=== PATIENT | male | born 1935 | race Native Hawaiian/Other Pacific Islander ===

== ENCOUNTER 2020-02-13 05:48 | Emergency (ER) | payer OTHER ==
[~2020-02-13] VITALS: Ht 177.8 cm; Wt 132.5 kg
[2020-02-13 07:26] VITALS: BP 148/50; TEMP 98.2
== END 2020-02-13 07:28 | disposition home or self-care (01) ==
LOC: EDBD 05:48 → ED 05:48
PROC: 0T9B70Z Drainage of Bladder with Drainage Device, Via Natural or Artificial Opening (ICD-10-PCS; principal; 2020-02-13)
DX: N40.1 Benign prostatic hyperplasia with lower urinary tract symptoms (principal); R33.8 Other retention of urine
CPT/HCPCS: 51702; 81000; 87088; 99283

== ENCOUNTER 2020-02-21 22:21 | Emergency (ER) | payer OTHER ==
[~2020-02-21] VITALS: Ht 177.8 cm; Wt 132.5 kg
[2020-02-21 23:45] VITALS: BP 120/59; TEMP 97.8
== END 2020-02-21 23:48 | disposition home or self-care (01) ==
LOC: ED 22:21
PROC: 0T2BX0Z Change Drainage Device in Bladder, External Approach (ICD-10-PCS; principal; 2020-02-21)
DX: R33.8 Other retention of urine (principal); N40.1 Benign prostatic hyperplasia with lower urinary tract symptoms; N32.0 Bladder-neck obstruction
CPT/HCPCS: 51702; 81000; 99283

== ENCOUNTER 2020-07-17 09:28 | Outpatient (CLI) | payer OTHER ==
[2020-07-17 09:51] LABS: PLATELET COUNT 317 K/uL (142-355)
[2020-07-17 10:00] LABS: POTASSIUM 4.4 mmol/L (3.6-5.2)
== END 2020-07-17 22:40 | disposition home or self-care (01) ==
LOC: LABW 09:28
PROVIDERS: ATTEND Nurse Practitioner Family
DX: N02.9 Recurrent and persistent hematuria with unspecified morphologic changes (principal); N32.89 Other specified disorders of bladder
CPT/HCPCS: 36415; 80053; 85027

== ENCOUNTER 2020-10-05 19:27 | Inpatient (IN) | payer OTHER ==
[~2020-10-05] VITALS: Ht 177.8 cm; Wt 134.7 kg
[2020-10-18 13:37] LABS: SODIUM 132 mmol/L (136-145)
[2020-10-18 13:38] LABS: PARTIAL THROMBOPLASTIN TIME 27.3 SECONDS (24.5-33.6)
[2020-10-18 13:41] LABS: PLATELET COUNT 350 K/uL (142-355)
[2020-10-18 13:47] LABS: POTASSIUM 4.4 mmol/L (3.6-5.2)
[2020-10-18 13:50] LABS: PLATELET COUNT 339 K/uL (142-355)
[2020-10-20 05:48] LABS: PLATELET COUNT 289 K/uL (142-355)
[2020-10-20 08:11] LABS: POTASSIUM 3.6 mmol/L (3.6-5.2)
[2020-10-20 08:12] LABS: POTASSIUM 4.1 mmol/L (3.6-5.2)
[2020-10-20 08:13] LABS: PLATELET COUNT 322 K/uL (142-355)
[2020-10-20 09:50] LABS: PARTIAL THROMBOPLASTIN TIME 25.4 SECONDS (24.5-33.6)
[2020-10-20 09:51] LABS: PLATELET COUNT 282 K/uL (142-355)
== END 2020-10-10 02:20 | disposition short-term general hospital (02) | DRG 682 ==
LOC: ED 19:27 → MED/SURG 23:00 → ICU 10-09 16:40 → MED/SURG 10-10 02:20 → ICU 10-10 02:20
PROVIDERS: ADMIT Family Medicine; ATTEND Family Medicine
DX: N17.8 Other acute kidney failure (principal); I26.99 Other pulmonary embolism without acute cor pulmonale; I13.0 Hypertensive heart and chronic kidney disease with heart failure and stage 1 through stage 4 chronic kidney disease, or unspecified chronic kidney disease; N20.9 Urinary calculus, unspecified; N32.89 Other specified disorders of bladder; R94.4 Abnormal results of kidney function studies; E86.0 Dehydration; E88.81 Metabolic syndrome and other insulin resistance; N40.0 Benign prostatic hyperplasia without lower urinary tract symptoms; E66.01 Morbid (severe) obesity due to excess calories; C67.9 Malignant neoplasm of bladder, unspecified; J44.9 Chronic obstructive pulmonary disease, unspecified; E11.22 Type 2 diabetes mellitus with diabetic chronic kidney disease; N18.9 Chronic kidney disease, unspecified; I50.89 Other heart failure; Z98.890 Other specified postprocedural states
CPT/HCPCS: 36415; 36600; 80048; 80053; 81000; 82271; 82550; 82805; 83735; 83880; 83986; 84100; 84484; 85027; 85379; 85610; 85730; 87635; 93005; 94760; 96360; 96361; 96375; 96376; 99284; J3475; J3480; Q9963; U0003

== ENCOUNTER 2020-10-18 19:50 | Emergency (ER) | payer OTHER ==
[~2020-10-18] VITALS: Ht 177.8 cm; Wt 132.5 kg
[2020-10-18 23:16] VITALS: BP 106/64; TEMP 98.7
== END 2020-10-18 23:16 | disposition home or self-care (01) ==
LOC: ED 19:50
PROC: 0T9B70Z Drainage of Bladder with Drainage Device, Via Natural or Artificial Opening (ICD-10-PCS; principal; 2020-10-18)
DX: N13.8 Other obstructive and reflux uropathy (principal); C67.9 Malignant neoplasm of bladder, unspecified
CPT/HCPCS: 51702; 99282

== ENCOUNTER 2020-10-21 06:31 | Emergency (ER) | payer OTHER ==
[~2020-10-21] VITALS: Ht 177.8 cm; Wt 132.4 kg
[2020-10-21 06:50] VITALS: BP 114/41; TEMP 98.3
== END 2020-10-21 08:28 | disposition home or self-care (01) ==
LOC: ED 06:31
PROC: 0TWB70Z Revision of Drainage Device in Bladder, Via Natural or Artificial Opening (ICD-10-PCS; principal; 2020-10-21)
DX: T83.091A Other mechanical complication of indwelling urethral catheter, initial encounter (principal); Y84.6 Urinary catheterization as the cause of abnormal reaction of the patient, or of later complication, without mention of misadventure at the time of the procedure; Y92.89 Other specified places as the place of occurrence of the external cause
CPT/HCPCS: 81000; 87077; 87086; 87088; 87185; 87186; 96372; 99283; J0696; J1885

== ENCOUNTER 2021-02-05 11:47 | Observation (INO) | payer OTHER ==
[~2021-02-05] VITALS: Ht 177.8 cm; Wt 138.9 kg
--- NOTE | 2021-02-05 12:15 | NUR ---
REC'D PT VIA WC. PT'S SON WITH PT AT TIME OF ARRIVAL TO [facility]. PT AWAKE AND ALERT ON ADMISSION. PT DENIES ANY CHEST PAIN OR DISCOMFORT AT THIS TIME . PT DENIES ANY SHORTNES OF BREATHE ON ADMISSION. PT'S VS TAKEN WILL CONT TO MONITOR.
--- NOTE | 2021-02-05 12:30 | NUR ---
TEL APPLIED PER MD ORDERS. PT'S HR NOTED TO BE 140 IRREG RYTHM. RESP NOTIFIED TO OBTAIN EKG PER MD ORDERS. 1300 FIRST DOSE DIGOXIN 0.25MG IVP GIVEN PER MD ORDES. HR NOTED TO BE 128-134 ON TEL AND IRREG PRIOR TO GIVING DIG IV. WILL CONT TO MONITOR. 1330 PT'S HR NOTED TO RESPOND TO DIG IV PT'S HR NOTED TO BE 110-118 AFTER DIG IV WILL CONT TO MONITOR.
[2021-02-05 12:48] VITALS: BP 127/62; TEMP 97.6; Ht 177.8 cm; Wt 138.9 kg
--- NOTE | 2021-02-05 13:15 | NUR ---
INFORMED DR CROFT THAT IVF'S WERE ORDERED ON ADMISSION BUT PT HAD 2+ PITTING EDEMA TO LOWER EXT NOTED ALONG WITH "ABD DISTENTION " PER PT AND PT'S SON. NEW ORDERS REC'D TO DC IVF'S AT THIS TIME AND CALL MD WITH LAB RESULTS.
[2021-02-05] MEDS ORDERED: LOTREL1 CA4 PO (14:00)
[2021-02-05] MEDS ORDERED: FENOFIBRATE50 MG PO (14:02)
[2021-02-05] MEDS ORDERED: FURO40TA93 PO (14:02)
[2021-02-05] MEDS ORDERED: ELIQUIS5 MG PO (14:03)
[2021-02-05] MEDS ORDERED: TAMS0.4C PO (14:03)
[2021-02-05] MEDS ORDERED: LIPITOR40 MG PO (14:04)
[2021-02-05] MEDS ORDERED: INSUINJP SC (14:05)
[2021-02-05 14:17] LABS: PLATELET COUNT 332 K/uL (142-355)
[2021-02-05 14:28] LABS: PARTIAL THROMBOPLASTIN TIME 31.4 SECONDS (24.5-33.6)
[2021-02-05 14:33] LABS: POTASSIUM 4.3 mmol/L (3.6-5.2)
[2021-02-05 16:00] VITALS: BP 106/57; TEMP 97.7
--- NOTE | 2021-02-05 16:30 | NUR ---
DR CROFT INFOMRED PT'S HR BACK UP TO 130 AT THIS TIME ON TEL. HR NOTED TO BE 124-131. AWAITING FURTHER ORDES 7178 NEW ORDERS REC'D TO REPEAT DIG 0.25 IV AT THIS TIME INFORMED LIDIA HOBBS OF NEW ORDERS. HR PRIOR TO DIG IV 132
[2021-02-05 20:00] VITALS: BP 108/46; TEMP 98.4
[2021-02-05 23:44] VITALS: BP 101/54; TEMP 98.3
[2021-02-06 04:00] VITALS: BP 103/62; TEMP 98.2
[2021-02-06 08:00] VITALS: BP 105/67; TEMP 97.9
[2021-02-06 08:13] LABS: PLATELET COUNT 292 K/uL (142-355)
[2021-02-06 08:33] LABS: POTASSIUM 4.4 mmol/L (3.6-5.2)
--- NOTE | 2021-02-06 11:40 | NUR ---
PT ALERT AND ORIENTED. LAYING SUPINE ON BED. LOWER EXTREMITIES EDEMA NOTED WITH PITTING EDEMA +2. PT STATED THAT HE HAS NOT HAD A BM SINCE WEDNESDAY, 02/04 AT HOME WHEN HAD TAKEN MILK OF MAG. PO. SPOKE WITH SON, ANSLEY TO GIVE UPDATE ON PTS STATUS. SON STATED THAT PT HAD SMALL BM ON 02/05/21 PRIOR TO ADMISSION. CONTINUES TO DISPLAY A-FIB ON TLEMETRY. ZO=[phone]. PT DENIES ANY PAIN/DISCOMFORT.
[2021-02-06 12:00] VITALS: BP 116/65; TEMP 97.6
--- NOTE | 2021-02-06 15:20 | NUR ---
PT C/O "GAS", CONSULTED WITH PCP(LANG) AND OBTAINED AN ORDER FOR SIMETHICONE AND ADMINISTERED TO PT. PTS ABD DISTENDED MORE AT CURRENT TIME THAN AT THE BEGINING OF SHIFT. PT HAS NOT HAD A BM TODAY. PCP ORDERED CT OF ABD AND PELVIS WITH CONSTRAST. PT ED ON BEING NPO UNTIL AFTER CT IS COMPLETED. PT VERBALIZED UNDERSTANDING. DENIES ANY PAIN/DISCOMFORT.
[2021-02-06 16:00] VITALS: BP 118/72; TEMP 97.4
--- NOTE | 2021-02-06 17:53 | NUR ---
PT HIGH FOWLERS IN BED. ALERT AND ORIENTED X4. DENIES ANY PAIN/[id number]. PT DRUNK THE FIRST BOTTLE OF CONTRAST TO PREP FOR CT SCAN. AND DAUGHTER AT BEDSIDE. PCP(LANG) ASSESSED PT AT BEDSIDE. ORDER FOR DIGOXIN 0.25 IV ADMINISTERED ORDERED AND PT TOLERATED WELL, HV=[id number]. PTS IV SITE TO RIGHT HAND INTACT WITH NO SWELLING OR REDNESS NOTED AND FLUSHES WITH NO DIFFICULTY. PER PCP PT IS TO REMAIN HEP LOCK WITH NO CONTINUOUS IVF. NO CHANGE IN EDEMA TO LOWER EXTREMITIES. PT HAS NOT HAD A BM THIS SHIFT. ABD DISTENDED AND SOFT. CONTINUE TO MONITOR.
[2021-02-06 20:00] VITALS: BP 135/63; TEMP 97.7
[2021-02-07] VITALS: BP 105/63; TEMP 98.1
[2021-02-07 04:00] VITALS: BP 103/61; TEMP 97.3
[2021-02-07 04:43] LABS: PLATELET COUNT 290 K/uL (142-355)
[2021-02-07 05:01] LABS: POTASSIUM 4.2 mmol/L (3.6-5.2)
[2021-02-07 08:00] VITALS: BP 91/50; TEMP 97.7
--- NOTE | 2021-02-07 08:17 | NUR ---
PT IS ALERT AND ORIENTED SITTING IN HIGH FOWLERS IN THE BED WATCHING TV. NO DISTRESS IS NOTED. PT TOOK MEDICATIONS WITHOUT ANY DIFFICULTY. PT STATES THAT HE SLEPT LIKE A BABY LAST NIGHT AFTER TAKING THE RESTORIL. PT STATED THAT HE HAS NOT SLEPT THAT WELL IN OVER A MONTH. PT'S HEART SOUNDS ARE IRREGULAR, PULSES ARE PALPATED IN ALL FOUR EXTREMITIES BUT ARE WEAK IN THE PEDAL PULSES. +2 PITTING EDEMA IN BILATERAL LOWER EXTREMITIES. LUNG SOUNDS ARE SLIGHTLY DIMINISHED WITH NO COUGH PRESENT. ABDOMEN IS DISTENDED AND FIRM WITH GASTRIC SOUNDS PRESENT. LAST BM WAS 02/05/21. PT DENIES ANY PAIN OR NEEDS AT THIS TIME. PT WAS LEFT IN HIGH FOWLERS WITH CALL LIGHT WITHIN REACH.
--- NOTE | 2021-02-07 08:26 | NUR ---
MORNING LABS AND SCAN RESULTS HAVE BEEN GIVEN TO PHYSICIAN. PHYSICIAN ORDERED A 500 ML BOLUS OF NORMAL SALINE WITH A REPEAT BMP IN 4 HOURS AFTER BOLUS.
[2021-02-07 12:00] VITALS: BP 123/70; TEMP 98.7
--- NOTE | 2021-02-07 13:33 | NUR ---
PT WAS ASSISTED TO THE BATHROOM FOR A BM. PT WALKED TO THE BATHROOM AND MAINTAINED A STEADY GAIT. PT WAS INSTRUCTED TO PULL THE CORD IN THE BATHROOM IF HE NEEDED ANY ASSISTANCE. NAD WAS NOTED DURING TRANSFER TO THE BATHROOM.
--- NOTE | 2021-02-07 13:40 | NUR ---
PT PASSED A SMALL FORMED BOWEL MOVEMENT.
--- NOTE | 2021-02-07 15:55 | NUR ---
PT WAS GIVEN DISCHARGE INSTRUCTIONS AND EDUCATION PT VERBALIZED UNDERSTANDING OF DISCHARGE INSTRUCTIONS. PT'S SON WAS IN THE ROOM ALSO, ALL NEW PRESCRIPTIONS WERE EXPLAINED IN DETAIL TO THE PT AND HIS SON BOTH VERBALIZED UNDERSTANDING. PT WAS GIVEN WRITTEN INSTRUCTIONS, EDUCATION, PRESCRIPTIONS, AND FOLLOWUP APPT TO [facility] AND REVIEW AT A LATER TIME. IV WAS REMOVED WITHOUT DIFFICULTY WITH CATHETER STILL INTACT. PT WAS TRANSPORTED TO THE SON'S PERSONAL VEHICLE VIA WHEELCHAIR, NAD WAS NOTED ON DISCHARGE.
== END 2021-02-07 15:55 | disposition home or self-care (01) ==
LOC: MED/SURG 11:47
PROVIDERS: ADMIT Family Medicine; ATTEND Family Medicine
DX: I48.91 Unspecified atrial fibrillation (principal); R07.89 Other chest pain; E11.42 Type 2 diabetes mellitus with diabetic polyneuropathy; E11.43 Type 2 diabetes mellitus with diabetic autonomic (poly)neuropathy; K31.84 Gastroparesis; R14.3 Flatulence; E88.09 Other disorders of plasma-protein metabolism, not elsewhere classified; D64.89 Other specified anemias; G47.09 Other insomnia; C67.9 Malignant neoplasm of bladder, unspecified
CPT/HCPCS: 36415; 80053; 80162; 82550; 83735; 83880; 84100; 84443; 84484; 85027; 85379; 85610; 85730; 87635; 93005; 94760; 99220; G0378; G0379; J1160; J1815; Q9963; U0003

== ENCOUNTER 2021-02-09 12:46 | Emergency (ER) | payer OTHER ==
[~2021-02-09] VITALS: Ht 177.8 cm; Wt 132.5 kg
[~2021-02-09 12:46] MED LIST: ELIQUIS5 MG PO; FENOFIBRATE50 MG PO; FURO40TA93 PO; INSUINJP SC; LIPITOR40 MG PO; LOTREL1 CA4 PO; TAMS0.4C PO
[2021-02-09 12:54] VITALS: TEMP 98
[2021-02-09 14:34] VITALS: BP 104/54
[2021-02-09] MEDS ORDERED: DIGO0.2549 PO (14:57)
[2021-02-09] MEDS ORDERED: AMIODARONE HYD100 MG PO (14:58)
[2021-02-09] MEDS ORDERED: METOPROLOL25 M1 PO (14:59)
[2021-02-09] MEDS ORDERED: TEMA15CA19 PO (15:00)
== END 2021-02-09 14:34 | disposition home or self-care (01) ==
LOC: ED 12:46
PROC: 0T2BX0Z Change Drainage Device in Bladder, External Approach (ICD-10-PCS; principal; 2021-02-09)
DX: T83.098A Other mechanical complication of other urinary catheter, initial encounter (principal); X58.XXXA Exposure to other specified factors, initial encounter; Y93.89 Activity, other specified; Y92.89 Other specified places as the place of occurrence of the external cause; Y99.8 Other external cause status
CPT/HCPCS: 51702; 81000; 99284